=== PATIENT | male | born 1945 | race Caucasian/White ===

== ENCOUNTER 2016-12-14 19:50 | Emergency (ER) | payer OTHER ==
--- NOTE | 2016-12-14 21:09 | ED ORDER SUMMARY ---
..... Patient: OPAL SU OrderSheet [facility] VisitID: [id number] [place] [address] 71y, M Registration Date/Time: 12/14/2016 ORDER SHEET Weight: 122.4 kg (stated) Allergies: Aspirin GENERAL ORDERS: Suture Set-up: (20:12/14/2016 HBivens A.R.N.P.) ([facility]ck 20:[facility] (20:21 CBradburn R.N.) Dress Wounds (20:12/14/2016 HBivens A.R.N.P.) (Ack 20:14 RKgeralduga) (21:35 CBradburn R.N.) MEDICATION ORDERS: Lidocaine Injection 1% plain (NOW) (20:13 12/14/2016 HBivens A.R.N.P.) (20:20 CBradburn R.N.) IV FLUIDS: ORDER SHEET NOTES: [Electronically signed by Susana Barragan R.N. (21:41 12/14/2016)] [Electronically signed by Rosa KumarRJoeN.PJoe (22:38 12/14/2016)] [Electronically locked/signed by Susana Barragan R.N. (21:41 12/14/2016)]
--- NOTE | 2016-12-14 21:09 | ED NURSING NOTES ---
Clinical Report - Nurses [address] [address] [place] [address] 12/14/2016 19:52 Patient: OPAL SU TRIAGE Triage time 19:58. Acuity: LEVEL 4. Chief Complaint: LACERATION. --20:07 Susana Barragan R.N. 19:58 12/14/16. BP: 141/86 taken on the left arm, while lying. HR: 87 (regular and normal rate). RR: 18 (regular). O2 saturation: 94%. Temp: 98.7 F. Pain level now: 0/10. --20:07 Susana Barragan R.N. Weight: 122.4 kg stated. Height/Length: 69 inches Per Patient. BMI: 39.9. --19:59 Susana Barragan R.N. Medications MetFORMIN HCl Oral (Tablet 1000 mg) 1 tablet, daily. --20:01 Susana Barragan R.N. GlyBURIDE Oral (Tablet 2.5 mg) 1 tablet, daily. --20:02 Susana Barragan R.N. Coreg Oral (Tablet 25 mg) 1 tablet, 2x a day. --20:04 Susana Barragan R.N. AmLODIPine Besylate Oral (Tablet 2.5 mg) 1 tablet, daily. --20:05 Susana Barragan R.N. Allergies Aspirin. Definite Severe(hives) --20:04 Susana Barragan R.N. History Arrived by private vehicle. Historian: patient. Accompanied by family. Primary physician (jhonatan avendano [facility]). Location of injuries: left leg. ( walked by a barstool at home this morning about 1000 am and a piece of brass snagged his leg. 3cm laceration noted to outer lower leg bleeding controlled). Treatment MEMBER SERVICES REPRESENTATIVE: Performed wound care. PAST MEDICAL HX: Tetanus status: up-to-date. Immunizations: up-to-date. SOCIAL HX: Never smoker. Occasional alcohol use; consumes liquor occasionally. No infectious disease exposure. ABUSE ASSESSMENT: No report of abuse. SELF HARM ASSESSMENT: A self harm assessment was performed. The patient answered "no" to the question "Have you recently felt down, depressed, or hopeless?", "Have you noticed less interest or pleasure in doing things?", "Do you have thoughts of harming or killing yourself?", "Are you here because you tried to hurt yourself?", "Have you ever tried to hurt yourself before today?", "Have you recently had thoughts about harming or killing others?" and "Do you have any dangerous items in your possession?". FALL RISK ASSESSMENT: Fall risk assessment completed. No fall risk identified. NUTRITIONAL RISK ASSESSMENT: The nutritional risk assessment revealed no deficiencies. FUNCTIONAL ASSESSMENT: Functional assessment: no impairments noted. LEARNING NEEDS ASSESSMENT: The learning needs assessment revealed no barriers. SKIN INTEGRITY ASSESSMENT: Skin integrity risk assessment completed. No skin integrity risk identified. --20:07 Susana Barragan R.N. PROBLEMS: Hypertension. Diabetes Mellitus. --20:06 Susana Barragan R.N. ADDITIONAL SURGERIES: Appendectomy. Hernia Repair. --20:06 Susana Barragan R.N. Interventions ID band on patient. To treatment room. --20:07 Susana Barragan R.N. PHYSICAL ASSESSMENT Ambulatory to room. GENERAL / NEURO / PSYCH: Alert. Oriented X 4. Appears in no acute distress. HEENT: Pupils equal, round and reactive to light. Head non-tender. RESPIRATORY: Respirations not labored. Chest nontender. Breath sounds within normal limits. CVS: Normal heart rate and rhythm. Pulses within normal limits. Capillary refill less than 2 seconds. GI / : Abdomen soft and nontender. EXTREMITIES: Extremities exhibit normal ROM. Neuro-vascular status intact to the extremity. Left le.0 cm laceration with controlled bleeding. SKIN: Skin is warm and dry. --20:07 Susana Barragan R.N. NURSING PROGRESS NOTES Two patient identifiers checked. Call light placed in reach. Side rails up x 1. Bed placed in lowest position. Brakes of bed on. Patient ready for evaluation- chart flagged. --20:07 Susana Barragan R.N. Wound cleansed with sterile saline and Hibiclens. --20:08 Susana Barragan R.N. 20:20 12/14/2016 Lidocaine Injection Injectable 1 % given. Allergies verified and confirmed 5 rights. (at bedside for PA use). --20:20 Susana Barragan R.N. 20:52 Patient contact made, no voiced questions or concerns at this time. Reason for wait provided. --21:02 McQuoid, Taya, ER Tech1. DISPOSITION / DISCHARGE Departure time: 2134. Condition at departure: improved and stable. No learning barriers present. Discharge instructions provided and reviewed with the patient. Reviewed wound care instructions. Patient verbalized understanding. Written instructions provided in Cook Islander. No medication instructions, referrals given to the patient, activity restrictions or note given. The patient was discharged home and accompanied by spouse. He left the Emergency Department ambulatory and via private vehicle. Spouse driving. --21:41 Susana Barragan R.N. 21:30 12/14/16. BP: 122/65. HR: 74 (regular and normal rate). RR: 18 (regular and unlabored). O2 saturation: 100% on room air. Temp: deferred. Pain level now: 0/10. --21:41 Susana Barragan R.N. Locked/Released at 12/14/2016 21:41 by Susana Barragan R.N.
--- NOTE | 2016-12-14 21:09 | ED CLINICAL REPORT ---
Clinical Report - Physicians/Mid Levels [facility] [address] [place] [address] 12/14/2016 19:52 Patient: OPAL SU Time Seen: 2002; initial patient contact, initial documentation, patient care assumed. Arrived- By private vehicle. Historian- patient and spouse. HISTORY OF PRESENT ILLNESS Chief Complaint: Injury to left leg. The injury happened today. The patient sustained a laceration from a sharp edge (piece of metal on bar stool). Occurred at home. Patient is not experiencing pain. Patient denies injury to the head or neck. No other injury. REVIEW OF SYSTEMS The patient sustained a laceration. No swelling, tingling, weakness, numbness or suspected foreign body. He has no pain on weight bearing. All systems otherwise negative, except as recorded above. PAST HISTORY See nurses notes. ( PROBLEMS: Hypertension. Diabetes Mellitus. --20:06 Susana Barragan R.N. ADDITIONAL SURGERIES: Appendectomy. Hernia Repair. --20:06 Susana Barragan RJoeN.). Tetanus immunization status is up-to-date. SOCIAL HISTORY Never smoker. Occasional alcohol use; consumes beer. No drug use. No recent travel. Is a local resident. He lives with spouse. FAMILY HISTORY No significant family medical history. ADDITIONAL NOTES The nursing notes have been reviewed with agreement regarding the chief complaint, HPI, ROS, PMH and patient medications and allergies. PHYSICAL EXAM Vital Signs: 12/14/2016 19:58 BP: 141/86. HR: 87. RR: 18. O2 saturation: 94%. Temp: 98.7 F. Pain level now: 0/10. Have been reviewed as normal and appear to be correct. Appearance: Alert. Oriented X3. No acute distress. Head: Head atraumatic. Eyes: Pupils equal, round and reactive to light. Eyes normal inspection. Respiratory: No respiratory distress. Skin: Skin intact. Skin warm and dry. Normal skin color. Normal skin turgor. Extremities: Left leg: subcutaneous 4.0 cm laceration located in the lateral aspect of mid leg. SEE LACERATION PROCEDURE NOTE #1. Neurovascular intact distally. No erythema, tenderness, swelling, abrasion or ecchymosis. No puncture wound, foreign body or deformity. No limitation of weight bearing. Lower extremity exam otherwise negative. Extremities otherwise negative. Neuro, Vascular and Tendons: Vascular status intact. Sensation intact. Motor intact. Tendon function intact. Gait: Normal gait. Neuro: Oriented X 3. No motor deficit. No sensory deficit. Note: isolated injury to leg. PROGRESS AND PROCEDURES Patient and spouse counseled in person regarding the patient's stable condition and diagnosis. Differential Diagnosis: Other possible considerations: lac, skin avulsion, fb. Above considerations are based on history and physical exam. Differential diagnosis was discussed with patient and patient's spouse. Disposition: Discharged home in good and improved condition (21:09). Condition: good and stable. CLINICAL IMPRESSION Single deep laceration to the left lower leg.Treatment of laceration not delayed. No infection or foreign body present. INSTRUCTIONS Protect wound and keep wound area clean. Soak in warm soapy water twice daily. Apply neosporin twice daily. Sutures should be removed. Warnings: GENERAL WARNINGS: Return or contact your physician immediately if your condition worsens or changes unexpectedly, if not improving as expected, or if other problems arise. Specifically return if problem worsens. Follow-up: Follow up with your doctor in about ten days even if well and for suture removal. Call for an appointment. Summary of care provided to patient and family. Understanding of the discharge instructions verbalized by patient. (Electronically signed by Rosa Kumar A.R.N.P. 12/14/2016 22:38)
--- NOTE | 2016-12-14 21:09 | ED ORDER SUMMARY ---
..... Patient: OPAL SU OrderSheet [facility] VisitID: [id number] [place] [address] 71y, M Registration Date/Time: 12/14/2016 ORDER SHEET Weight: 122.4 kg (stated) Allergies: Aspirin GENERAL ORDERS: Suture Set-up: (20:12/14/2016 HBivens A.R.N.P.) (Ack 20:14 [facility] (20:21 CBradburn R.N.) Dress Wounds (20:12/14/2016 HBivens A.R.N.P.) (Ack 20:14 RKgeralduga) (21:35 CBradburn R.N.) MEDICATION ORDERS: Lidocaine Injection 1% plain (NOW) (20:13 12/14/2016 HBivens A.R.N.P.) (20:20 CBradburn R.N.) IV FLUIDS: ORDER SHEET NOTES: [Electronically signed by Susana Barragan R.N. (21:41 12/14/2016)] [Electronically signed by Rosa KumarRJoeN.PJoe (22:38 12/14/2016)] [Electronically locked/signed by Susana Barragan R.N. (21:41 12/14/2016)]
--- NOTE | 2016-12-14 21:09 | ED NURSING NOTES ---
Clinical Report - Nurses [address] [address] [place] [address] 12/14/2016 19:52 Patient: OPAL SU TRIAGE Triage time 19:58. Acuity: LEVEL 4. Chief Complaint: LACERATION. --20:07 Susana Barragan R.N. 19:58 12/14/16. BP: 141/86 taken on the left arm, while lying. HR: 87 (regular and normal rate). RR: 18 (regular). O2 saturation: 94%. Temp: 98.7 F. Pain level now: 0/10. --20:07 Susana Barragan R.N. Weight: 122.4 kg stated. Height/Length: 69 inches Per Patient. BMI: 39.9. --19:59 Susana Barragan R.N. Medications MetFORMIN HCl Oral (Tablet 1000 mg) 1 tablet, daily. --20:01 Susana Barragan R.N. GlyBURIDE Oral (Tablet 2.5 mg) 1 tablet, daily. --20:02 Susana Barragan R.N. Coreg Oral (Tablet 25 mg) 1 tablet, 2x a day. --20:04 Susana Barragan R.N. AmLODIPine Besylate Oral (Tablet 2.5 mg) 1 tablet, daily. --20:05 Susana Barragan R.N. Allergies Aspirin. Definite Severe(hives) --20:04 Susana Barragan R.N. History Arrived by private vehicle. Historian: patient. Accompanied by family. Primary physician (jhonatan avendano [facility]). Location of injuries: left leg. ( walked by a barstool at home this morning about 1000 am and a piece of brass snagged his leg. 3cm laceration noted to outer lower leg bleeding controlled). Treatment LEAD NURSE: Performed wound care. PAST MEDICAL HX: Tetanus status: up-to-date. Immunizations: up-to-date. SOCIAL HX: Never smoker. Occasional alcohol use; consumes liquor occasionally. No infectious disease exposure. ABUSE ASSESSMENT: No report of abuse. SELF HARM ASSESSMENT: A self harm assessment was performed. The patient answered "no" to the question "Have you recently felt down, depressed, or hopeless?", "Have you noticed less interest or pleasure in doing things?", "Do you have thoughts of harming or killing yourself?", "Are you here because you tried to hurt yourself?", "Have you ever tried to hurt yourself before today?", "Have you recently had thoughts about harming or killing others?" and "Do you have any dangerous items in your possession?". FALL RISK ASSESSMENT: Fall risk assessment completed. No fall risk identified. NUTRITIONAL RISK ASSESSMENT: The nutritional risk assessment revealed no deficiencies. FUNCTIONAL ASSESSMENT: Functional assessment: no impairments noted. LEARNING NEEDS ASSESSMENT: The learning needs assessment revealed no barriers. SKIN INTEGRITY ASSESSMENT: Skin integrity risk assessment completed. No skin integrity risk identified. --20:07 Susana Barragan R.N. PROBLEMS: Hypertension. Diabetes Mellitus. --20:06 Susana Barragan R.N. ADDITIONAL SURGERIES: Appendectomy. Hernia Repair. --20:06 Susana Barragan R.N. Interventions ID band on patient. To treatment room. --20:07 Susana Barragan R.N. PHYSICAL ASSESSMENT Ambulatory to room. GENERAL / NEURO / PSYCH: Alert. Oriented X 4. Appears in no acute distress. HEENT: Pupils equal, round and reactive to light. Head non-tender. RESPIRATORY: Respirations not labored. Chest nontender. Breath sounds within normal limits. CVS: Normal heart rate and rhythm. Pulses within normal limits. Capillary refill less than 2 seconds. GI / : Abdomen soft and nontender. EXTREMITIES: Extremities exhibit normal ROM. Neuro-vascular status intact to the extremity. Left le.0 cm laceration with controlled bleeding. SKIN: Skin is warm and dry. --20:07 Susana Barragan R.N. NURSING PROGRESS NOTES Two patient identifiers checked. Call light placed in reach. Side rails up x 1. Bed placed in lowest position. Brakes of bed on. Patient ready for evaluation- chart flagged. --20:07 Susana Barragan R.N. Wound cleansed with sterile saline and Hibiclens. --20:08 Susana Barragan R.N. 20:20 12/14/2016 Lidocaine Injection Injectable 1 % given. Allergies verified and confirmed 5 rights. (at bedside for PA use). --20:20 Susana Barragan R.N. 20:52 Patient contact made, no voiced questions or concerns at this time. Reason for wait provided. --21:02 McQuoid, Taya, ER Tech1. DISPOSITION / DISCHARGE Departure time: 2134. Condition at departure: improved and stable. No learning barriers present. Discharge instructions provided and reviewed with the patient. Reviewed wound care instructions. Patient verbalized understanding. Written instructions provided in Samoan. No medication instructions, referrals given to the patient, activity restrictions or note given. The patient was discharged home and accompanied by spouse. He left the Emergency Department ambulatory and via private vehicle. Spouse driving. --21:41 Susana Barragan R.N. 21:30 12/14/16. BP: 122/65. HR: 74 (regular and normal rate). RR: 18 (regular and unlabored). O2 saturation: 100% on room air. Temp: deferred. Pain level now: 0/10. --21:41 Susana Barragan R.N. Locked/Released at 12/14/2016 21:41 by Susana Barragan R.N.
--- NOTE | 2016-12-14 22:38 | ED MED RECONCILIATION SUMMARY ---
Patient: OPAL SU Medication Reconciliation Report [facility] VisitID: [id number] [address] [place] [address] 71y, M Registration Date/Time: 12/14/2016 Weight: 122.4 kg Height/Length: 69 in. BMI: 39.9 ALLERGIES: Aspirin The patient's Home Medications are listed below: THE FOLLOWING MEDICATIONS NEED TO BE RECONCILED: AmLODIPine Besylate Oral (2.5 mg) 1 tablet, daily Coreg Oral (25 mg) 1 tablet, 2x a day GlyBURIDE Oral (2.5 mg) 1 tablet, daily MetFORMIN HCl Oral (1000 mg) 1 tablet, daily The source(s) of the original Home Medication information: Not obtained. The following Medications were given to the patient in the Emergency Department: Lidocaine [Injection] Injection 1 %, administered: 12/14/2016 8:20:00 PM The following Medications were prescribed to the patient: None.
--- NOTE | 2016-12-14 22:38 | ED MED RECONCILIATION SUMMARY ---
Patient: OPAL SU Medication Reconciliation Report [facility] VisitID: [id number] [address] [place] [address] 71y, M Registration Date/Time: 12/14/2016 Weight: 122.4 kg Height/Length: 69 in. BMI: 39.9 ALLERGIES: Aspirin The patient's Home Medications are listed below: THE FOLLOWING MEDICATIONS NEED TO BE RECONCILED: AmLODIPine Besylate Oral (2.5 mg) 1 tablet, daily Coreg Oral (25 mg) 1 tablet, 2x a day GlyBURIDE Oral (2.5 mg) 1 tablet, daily MetFORMIN HCl Oral (1000 mg) 1 tablet, daily The source(s) of the original Home Medication information: Not obtained. The following Medications were given to the patient in the Emergency Department: Lidocaine [Injection] Injection 1 %, administered: 12/14/2016 8:20:00 PM The following Medications were prescribed to the patient: None.
--- NOTE | 2016-12-14 22:38 | ED MAR SUMMARY ---
..... Medication Administration Record [address] [place] [address] Patient: OPAL SU Visit ID: [id number] 71y, M Weight: 122.4 kg Height/Length: 69 in BMI: 39.9 ALLERGIES: Aspirin Given 20:20 12/14/2016 Susana Barragan R.N. Medication Administered: LIDOCAINE [INJECTION], Dose: 1 % Injectable Injection. Medication Ordered: Lidocaine Injection 1% plain (NOW).
--- NOTE | 2016-12-14 22:38 | ED DISCHARGE INSTRUCTIONS ---
Patient: OPAL SU General Instructions [facility] VisitID: [id number] [place] [address] 71y, M Registration Date/Time: 12/14/2016 Single deep laceration to the left lower leg.Treatment of laceration not delayed. No infection or foreign body present. INSTRUCTIONS Protect wound and keep wound area clean. Soak in warm soapy water twice daily. Apply neosporin twice daily. Sutures should be removed. Warnings: GENERAL WARNINGS: Return or contact your physician immediately if your condition worsens or changes unexpectedly, if not improving as expected, or if other problems arise. Specifically return if problem worsens. Follow-up: Follow up with your doctor in about ten days even if well and for suture removal. Call for an appointment. Summary of care provided to patient and family. Understanding of the discharge instructions verbalized by patient. ADDITIONAL INFORMATION Laceration (All Closures) Alaceration is a cut through the skin. This will usually require stitches (sutures) or cabrera if it is deep. Minor cuts may be treated with a surgical tape closure orskin glue. Home care The following guidelines will help you care for your laceration at home: Extremity, face, or trunk wounds Keep the wound clean and dry. If a bandage was applied and it becomes wet or dirty, replace it. Otherwise, leave it in place for the first 24 hours. If stitches or cabrera were used, clean the wound daily. After removing the bandage, wash the area with soap and water. Use a wet cotton swab to loosen and remove any blood or crust that forms. The doctor may prescribe an antibiotic cream or ointment to prevent infection. Do not stop taking this medication until you have finished the prescribed course or the doctor tells you to stop. The doctor may also prescribe medications for pain. Follow the doctors instructions for taking these medications. You may remove the bandage to shower as usual after the first 24 hours, but do not soak the area in water (no swimming) until the stitches or cabrera are removed. If surgical tape was used, keep the area clean and dry. If it becomes wet, blot it dry with a towel. If skin glue was used, do not scratch, rub, or pick at the adhesive film. Do not place tape directly over the film. Do not apply liquid, ointment, or creams to the wound while the film is in place. Do not clean the wound with peroxide and do not apply ointments. Avoid activities that cause heavy sweating until the film has fallen off. Protect the wound from prolonged exposure to sunlight or tanning lamps. You may shower as usual but do not soak the wound in water (no baths or swimming). The film will fall off by itself in 510 days. Scalp wounds During the first two days, you may carefully rinse your hair in the shower to remove blood, glass or dirt particles. After two days, you may shower and shampoo your hair normally. Do not soak your scalp in the tub or go swimming until the stitches or cabrera have been removed. Talk with your doctor before applying any antibiotic ointment to the wound. Mouth wounds Eat soft foods to reduce pain. If the cut is inside of your mouth, clean by rinsing after each meal and at bedtime with a mixture of equal parts water and hydrogen peroxide (do not swallow!). Or, you can use a cotton swab to directly apply hydrogen peroxide onto the cut. Mouth wounds can be painful when eating. You may use an [id number] local numbing solution for pain relief. If this is not available, you may use any numbing solution for teething babies. You may apply this directly to the sores with a cotton-tip swab or with your finger. Follow-up care Follow up with your health care provider. Most skin wounds heal within ten days. Mouth and facial wounds heal within five days. However, even with proper treatment, a wound infection may sometimes occur. Therefore, you should check the wound daily for signs of infection listed below. Stitches should be removed from the face within five days; stitches and cabrera should be removed from other parts of the body within 714 days. If dissolving stitches were used in the mouth, these will fall out or dissolve without the need for removal. If tape closures were used, remove them yourself if they have not fallen off after 7 days. Ifskin glue was used, the film will fall off by itself in 510 days. When to seek medical care Get prompt medical attention if any of these occur: Bleeding not controlled by direct pressure Signs of infection, including increasing pain in the wound, increasing wound redness or swelling, or pus coming from the wound Fever of 100.4F (38C) or higher, or as directed by your health care provider Stitches or cabrera come apart or fall out or surgical tape falls off before 7 days Wound edges re-open Laceration, Extremity (Sutures, Cabrera, Or Tape) A laceration is a cut through the skin. This will usually require stitches (sutures) or cabrera if it is deep. Minor cuts may be treated with surgical tape closures. Home care The following guidelines will help you care for your laceration at home: Keep the wound clean and dry. If a bandage was applied and it becomes wet or dirty, replace it. Otherwise, leave it in place for the first 24 hours, then change it once a day or as directed. If stitches or cabrera were used, clean the wound daily: After removing the bandage, wash the area with soap and water. Use a wet cotton swab to loosen and remove any blood or crust that forms. After cleaning, keep the wound clean and dry. Talk with your doctor before applying any antibiotic ointment to the wound. Reapply the bandage. You may remove the bandage to shower as usual after the first 24 hours, but do not soak the area in water (no swimming) until the stitches or cabrera are removed. If surgical tape closures were used, keep the area clean and dry. If it becomes wet, blot it dry with a towel. The doctor may prescribe an antibiotic cream or ointment to prevent infection. Do not stop taking this medication until you have finished the prescribed course or the doctor tells you to stop. The doctor may also prescribe medications for pain. Follow the doctors instructions for taking these medications. If you have chronic liver or kidney disease or ever had a stomach ulcer or GI bleeding, talk with your doctor before using these medicines. Follow-up care Follow up with your health care provider. Most skin wounds heal within ten days. However, an infection may sometimes occur despite proper treatment. Therefore, check the wound daily for the signs of infection listed below. Stitches and cabrera should be removed within 714 days. If surgical tape closures were used, you may remove them after 10 days, if they have not fallen off by then. Notify your doctor if you notice persistent numbness or weakness in the injured extremity. (Note:A radiologist will review any X-rays that were taken. We will notify you of any new findings that may affect your care.) When to seek medical care Get prompt medical attention if any of these occur: Increasing pain in the wound Redness, swelling, or pus coming from the wound Fever of 100.4F (38C) or higher, or as directed by your health care provider If stitches or cabrera come apart or fall out before your next appointment If the surgical tape closures fall off within seven days, or the wound edges re-open Bleeding not controlled by direct pressure You have been given the following additional information: Laceration, All Laceration, Extrem (Suture, Staple, Or Tape) (Electronically signed by Rosa Kumar A.R.N.P. 12/14/2016 22:38)
--- NOTE | 2016-12-14 22:38 | ED MAR SUMMARY ---
..... Medication Administration Record [address] [place] [address] Patient: OPAL SU Visit ID: [id number] 71y, M Weight: 122.4 kg Height/Length: 69 in BMI: 39.9 ALLERGIES: Aspirin Given 20:20 12/14/2016 Susana Barragan R.N. Medication Administered: LIDOCAINE [INJECTION], Dose: 1 % Injectable Injection. Medication Ordered: Lidocaine Injection 1% plain (NOW).
== END 2016-12-14 21:35 | disposition home or self-care (01) ==
LOC: ED SRH 19:50
DX: S81.812A Laceration without foreign body, left lower leg, initial encounter (principal); W45.8XXA Other foreign body or object entering through skin, initial encounter; W22.8XXA Striking against or struck by other objects, initial encounter; Y92.009 Unspecified place in unspecified non-institutional (private) residence as the place of occurrence of the external cause